=== PATIENT | male | born 1945 | race Caucasian/White ===

== ENCOUNTER 2021-02-16 06:50 | Outpatient (CLI) | payer MEDICARE, OTHER ==
[~2021-02-16] VITALS: Ht 172.7 cm; Wt 71.8 kg
[2021-02-17] MEDS ORDERED: EMPA10TA PO (13:24)
[2021-02-17] MEDS ORDERED: LISI10TA25 PO (13:24)
[2021-02-17] MEDS ORDERED: AMLO-251 PO (13:24)
[2021-02-17] MEDS ORDERED: C,E,1CAP PO (13:24)
[2021-02-17] MEDS ORDERED: UBID100C17 PO (13:24)
[2021-02-17] MEDS ORDERED: CLOP75TA28 PO (13:24)
[2021-02-17] MEDS ORDERED: OMEP20TA33 PO (13:24)
[2021-02-17] MEDS ORDERED: ATOR40TA70 PO (13:24)
[2021-02-17] MEDS ORDERED: LINA5TAB PO (13:24)
[2021-02-17] MEDS ORDERED: ASPI-999 PO (13:24)
== END 2021-02-17 13:27 | disposition home or self-care (01) ==
LOC: PREOP 06:50
PROVIDERS: ATTEND Specialist
DX: Z01.818 Encounter for other preprocedural examination (principal)

== ENCOUNTER 2021-02-20 08:24 | Day surgery (SDC) | payer MEDICARE, OTHER ==
[~2021-02-20] VITALS: Ht 172.7 cm; Wt 71.8 kg
[~2021-02-20 08:24] MED LIST: AMLO-251 PO; ASPI-999 PO; ATOR40TA70 PO; C,E,1CAP PO; CLOP75TA28 PO; EMPA10TA PO; LINA5TAB PO; LISI10TA25 PO; OMEP20TA33 PO; UBID100C17 PO
[2021-02-20] MEDS ORDERED: TIMOLOL MALEATE 0.5% 5 ML (TIMOPTIC) BTL OU PRN (09:00)
[2021-02-20] MEDS ORDERED: MOXIFLOXACIN OPHTH SOLN 5 MG/ML 0.3 ML SYRINGE OP ONE (09:00)
[2021-02-20] MEDS ORDERED: POVIDONE (BETADINE) OPHTH SOLN 5% 30 ML OP ONE (09:00)
[2021-02-20] MEDS ORDERED: LIDOCAINE PF 1% 2 ML VIAL IR PRN (09:00)
[2021-02-20] MEDS: TETRACAINE 0.5% OPHTH SOLN 4 ML BTL (SINGLE DOSE ONLY) OU PRN ×4 (09:16→09:33)
[2021-02-20 09:19] VITALS: BP 145/62
[2021-02-20] MEDS: PHENYLEPHRINE 10% OPHTH (NEO-SYN) 5 ML BTL OU SCH ×3 (09:23→09:33)
[2021-02-20] MEDS: TROPICAMIDE 1% OPH SOLN (MYDRIACYL) 15 ML BTL OP SCH ×3 (09:23→09:33)
[2021-02-20] MEDS ORDERED: MIDAZOLAM 2 MG/2 ML (VERSED) VIAL ONE (09:46)
--- NOTE | 2021-02-20 09:53 | Ophthalmologist Pre-Op Note ---
Pre-Operative Progress Note H&P Reviewed The H&P was reviewed, patient examined and no changes noted. Date H&P Reviewed: Feb 20, 2021 Time H&P Reviewed: 09:53 Pre-Op Dx Cataract, Right Eye BROOKE KUNZ MD Feb 20, 2021 09:53
--- NOTE | 2021-02-20 10:15 | Ophthalmology Operative Report ---
Cataract removal/placement IOL PREOPERATIVE DIAGNOSIS: Cataract Right Eye POSTOPERATIVE DIAGNOSIS: Cataract Right Eye PROCEDURE: Cataract removal and placement of posterior chamber implant, right eye SURGEON: Sean Kunz ANESTHESIA: Topical with sedation COMPLICATIONS: None ESTIMATED BLOOD LOSS: Minimal DESCRIPTION OF PROCEDURE: After proper informed consent was obtained, the patient, a 75 male, was taken to the Operating Room and the right eye was anesthetized with tetracaine. The right eye was then prepped and draped in the usual manner. A wire lid speculum was placed. A paracentesis was made at the left hand position. Preservative free lidocaine was injected into the anterior chamber followed by viscoelastic. A clear corneal incision was made in the temporal position. A capsulorrhexis was preformed and the central nuclear and cortical material were removed. The posterior capsule was polished and Mathew 13.5 AU00T0 IOL was placed into the capsular bag. The residual viscoelastic was aspirated and balanced saline solution was injected into the anterior chamber. Moxifloxacin was injected into the anterior chamber. The wound was checked and found to be water tight. The patient tolerated the procedure well without complications. SEAN KUNZ MD Feb 20, 2021 10:15
[2021-02-20 10:21] VITALS: BP 126/63
[2021-02-20] MEDS ORDERED: acetaZOLAMIDE ER 500 MG CAP (DIAMOX SEQUELS) PO ONE (10:30)
--- NOTE | 2021-02-20 13:17 | Anesthesia-General Post-Op ---
MAC Patient Condition Mental Status/LOC: Same as Preop Cardiovascular: Satisfactory Nausea/Vomiting: Absent Respiratory: Satisfactory Pain: Controlled Complications: Absent Post Op Complications Complications None Follow Up Care/Instructions Patient Instructions None needed. Anesthesiology Discharge Order Discharge Order Patient was doing well after the procedure with no complaints, stable vital signs, no apparent adverse anesthesia problems. ANÍBAL KEARNEY DO Feb 20, 2021 13:17
== END 2021-02-20 10:22 ==
LOC: SDC 08:24
PROVIDERS: ATTEND Specialist
DX: E11.36 Type 2 diabetes mellitus with diabetic cataract (principal); H25.12 Age-related nuclear cataract, left eye; I25.10 Atherosclerotic heart disease of native coronary artery without angina pectoris; I25.2 Old myocardial infarction; E78.00 Pure hypercholesterolemia, unspecified; Z95.1 Presence of aortocoronary bypass graft; Z79.82 Long term (current) use of aspirin; Z79.899 Other long term (current) drug therapy; Z79.02 Long term (current) use of antithrombotics/antiplatelets; Z90.89 Acquired absence of other organs; Z80.3 Family history of malignant neoplasm of breast; Z83.3 Family history of diabetes mellitus
CPT/HCPCS: 66984; 82947; V2632

== ENCOUNTER 2021-03-13 08:30 | Day surgery (SDC) | payer MEDICARE, OTHER ==
[~2021-03-13] VITALS: Ht 172.7 cm; Wt 71.8 kg
[2021-03-13] MEDS ORDERED: MOXIFLOXACIN OPHTH SOLN 5 MG/ML 0.3 ML SYRINGE OP ONE (08:45)
[2021-03-13] MEDS ORDERED: TIMOLOL MALEATE 0.5% 5 ML (TIMOPTIC) BTL OU PRN (08:45)
[2021-03-13] MEDS ORDERED: LIDOCAINE PF 1% 2 ML VIAL IR PRN (08:45)
[2021-03-13] MEDS ORDERED: POVIDONE (BETADINE) OPHTH SOLN 5% 30 ML OP ONE (08:45)
[2021-03-13] MEDS: TETRACAINE 0.5% OPHTH SOLN 4 ML BTL (SINGLE DOSE ONLY) OU PRN ×4 (08:56→09:12)
[2021-03-13] MEDS: TROPICAMIDE 1% OPH SOLN (MYDRIACYL) 15 ML BTL OP SCH ×3 (09:02→09:13)
[2021-03-13] MEDS: PHENYLEPHRINE 10% OPHTH (NEO-SYN) 5 ML BTL OU SCH ×3 (09:02→09:13)
[2021-03-13 09:05] VITALS: BP 148/77
--- NOTE | 2021-03-13 09:29 | Ophthalmologist Pre-Op Note ---
Pre-Operative Progress Note H&P Reviewed The H&P was reviewed, patient examined and no changes noted. Date H&P Reviewed: Mar 13, 2021 Time H&P Reviewed: 09:28 Pre-Op Dx Cataract, Left Eye BROOKE KUNZ MD Mar 13, 2021 09:28
[2021-03-13] MEDS ORDERED: MIDAZOLAM 2 MG/2 ML (VERSED) VIAL ONE (09:31)
--- NOTE | 2021-03-13 09:48 | Ophthalmology Operative Report ---
Cataract removal/placement IOL PREOPERATIVE DIAGNOSIS: Cataract Left Eye POSTOPERATIVE DIAGNOSIS: Cataract Left Eye PROCEDURE: Cataract removal and placement of posterior chamber implant, left eye SURGEON: Sean Kunz ANESTHESIA: Topical with sedation COMPLICATIONS: None ESTIMATED BLOOD LOSS: Minimal DESCRIPTION OF PROCEDURE: After proper informed consent was obtained, the patient, a 75 male, was taken to the Operating Room and the left eye was anesthetized with tetracaine. The left eye was then prepped and draped in the usual manner. A wire lid speculum was placed. A paracentesis was made at the left hand position. Preservative free lidocaine was injected into the anterior chamber followed by viscoelastic. A clear corneal incision was made in the temporal position. A capsulorrhexis was preformed and the central nuclear and cortical material were removed. The posterior capsule was polished and an Mathew 16.0 AU00T0 was placed into the capsular bag. The residual viscoelastic was aspirated and balanced saline solution was injected into the anterior chamber. Moxifloxacin was injected into the anterior chamber. The wound was checked and found to be water tight. The patient tolerated the procedure well without complications. SAEN KUNZ MD Mar 13, 2021 09:48
[2021-03-13] MEDS ORDERED: acetaZOLAMIDE ER 500 MG CAP (DIAMOX SEQUELS) PO ONE (10:00)
[2021-03-13 10:02] VITALS: BP 124/64
--- NOTE | 2021-03-13 12:47 | Anesthesia-General Post-Op ---
MAC Patient Condition Mental Status/LOC: Same as Preop Cardiovascular: Satisfactory Nausea/Vomiting: Absent Respiratory: Satisfactory Pain: Controlled Complications: Absent Post Op Complications Complications None Follow Up Care/Instructions Patient Instructions None needed. Anesthesiology Discharge Order Discharge Order Patient is doing well, no complaints, stable vital signs, no apparent adverse anesthesia problems. No complications reported per nursing. ALFIE TIWARI CRNA Mar 13, 2021 12:47
--- OUTSIDE RECORDS SUMMARY | 2021-03-15 14:57 | XMS REPORT | Encounter Summary ---
Author Author [facility] Organization [facility] Address Unknown Phone Unavailable Care Team Providers Care Rubber Tile Floor Layer Name Role Phone LashawnAnder PCP Encounter Details Care Team Description Date Type Department Karen Gomes, TAISHA [address] [facility] [address] [place] [address] [phone] 03/02/2021 Documentation [facility] [address] [place] [id number] Social History Date Tobacco Use Types Packs/Day Years Used Never Smoker Smokeless Tobacco: Never Used Comments Alcohol Use Standard Drinks/Week No 0 (1 standard drink = 0.6 o z pure alcohol) Sex Assigned at Date Recorded Not on file documented as of this encounter Plan of Treatment Care Team Description Date Type Specialty Karen Gomes APRN [address] [facility] [address] [place] [address] [phone] 04/15/2021 Office Visit Cardiology documented as of this encounter Visit Diagnoses Not on filedocumented in this encounter
--- OUTSIDE RECORDS SUMMARY | 2021-03-15 14:57 | XMS REPORT | Clinical Summary ---
Author Author [facility] Organization [facility] Address Unknown Phone Unavailable Care Team Providers Care Ship Yard Electrical Person Name Role Phone MartyAnder gonsalez PCP Allergies No Known Active Allergies Medications End Date Status Medication Sig Dispensed Refills Start Date Active vit C,E,Zn,Cu one tablet by 30 0 [id number]-rosmery (OCUVITE mouth daily 4 ADULT 50+) 250-5-1 mg cap Active linagliptin (TRADJENTA) 5 take 1 tablet 30 0 mg Tab tablet by oral route 4 every day Active co-enzyme Q10 (COQ-10) take 1 tablet 1 0 0 100 mg capsule by oral route 2 daily Active omeprazole (PRILOSEC) 20 take 1 1 0 0 MG capsule capsule 2 (20MG) by oral route every day before a meal Active aspirin 81 MG EC tablet take 1 tablet 1 0 (81MG) by 2 oral route every day Active L.ACIDOPHILUS/B.BIFIDUM,L Take 1 tablet 0 ONGUM (HEALTHY COLON by mouth ORAL) daily. Active amLODIPine (NORVASC) 10 Take 10 mg by 0 MG tablet mouth daily. Active empagliflozin (JARDIANCE) Take by mouth 0 10 mg tablet daily. Active atorvastatin (LIPITOR) 40 TAKE 1 90 tablet 3 MG tabletIndications: TABLET(40 MG) 0 Dyslipidemia BY MOUTH EVERY NIGHT Active clopidogreL (PLAVIX) 75 TAKE 1 90 tablet 3 mg tablet TABLET(75 MG) 0 BY MOUTH DAILY Active lisinopriL Take 1 tablet 180 tablet 3 (PRINIVIL,ZESTRIL) 20 MG (20 mg total) 0 tablet by mouth 2 (two) times a day. Active nitroglycerin (NITROSTAT) Take one 25 tablet 3 0.4 MG SL tablet under tongue 0 for severe chest pain and may repeat every 5 minutes for a total of 3, if chest pain is not relieved. 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, controlled CKD (chronic kidney disease) stage 3, G FR 30-59 ml/min FPC (current) use of antithrombot ics/antiplatelets Resolved Problems Problem Noted Date Resolved Date Diabetes mellitus, type 2 05/07/2020 S/P coronary artery stent placement 05/07/2020 Encounters Care Team Description Date Type Specialty Karen Gomes APRN 03/02/2021 Documentation Cardiology Karen Gomes APRN 03/02/2021 Documentation Cardiology from Last 3 Months Family History Medical History Relation Name Comments Coronary artery bypass Father CABG x 3 vessel s graft Heart disease Father Parkinson's disease Father Diabetes Maternal Grandfather Diabetes Mother Heart failure Mother Stroke Mother Thyroid disease Mother Thyroid disease Sister Hypertension Sister Relation Name Status Comments Father Cause of was Parkinsons at age 76. (Age 76) Maternal Grandfather Mother Cause of was CHF at age 82. (Age 82) Sister Sister Social History Date Tobacco Use Types Packs/Day Years Used Never Smoker Smokeless Tobacco: Never Used Comments Alcohol Use Standard Drinks/Week No 0 (1 standard drink = 0.6 o z pure alcohol) Sex Assigned at Date Recorded Not on file Last Filed Vital Signs Reading Time Taken Comments Vital Sign 163/74 04/22/2020 4:20 PM CDT repeat left arm Blood Pressure 67 04/22/2020 4:20 PM CDT Pulse - - Temperature - - Respiratory Rate - - Oxygen Saturation - - Inhaled Oxygen Concentration 73 kg (161 lb) 04/22/2020 4:20 PM CDT Weight 172.7 cm (5' 8") 04/22/2020 4:20 PM CDT Height 24.48 04/22/2020 4:20 PM CDT Body Mass Index Plan of Treatment Care Team Description Date Type Specialty Karen Gomes, MONEY POSITION OFFICER [address] [place] [address] [place] [address] [phone] 04/15/2021 Office Visit Cardiology Health Maintenance Due Date Last Done Comments Advance Directive has 1945 been filed Diabetes Mellitus 1945 Ophthalmology Exam Hepatitis C Screen 1945 Medicare Annual Wellness 1945 Td/Tdap# 1945 Diabetes Mellitus Foot 1956 Exam COVID-19 Vaccine (1) 1958 Colorectal Screening via 1996 Colonoscopy Zoster Vaccine# (1 of 2) 1996 Advance Directive 12/07/2011 Conversation Depression Screening 12/07/2011 PHQ-9 # Fall Risk Assessment # 12/07/2011 Patient Needs Advance 12/07/2011 Directive Diabetes Mellitus 08/31/2013 02/28/2013, Hemoglobin A1C 08/24/2012, 04/27/2012, Additional history exists Pneumococcal Vaccine: 65+ 05/08/2014 05/08/2013 Years (2 of 2 - PCV13) Lipid Screening 02/28/2019 02/28/2018, 01/09/2016, 08/18/2015, Additional history exists Influenza Vaccine (#1) 2021 05/15/2018, 06/02/2017, 05/17/2014, Additional history exists Results Not on filefrom Last 3 Months Insurance Type Payer Benefit Subscriber ID Effective Phone Address Plan / Dates Group Medicare MEDICARE MEDICARE [id number] 2011-P [place] PART [place], [place] COMMERCIAL-NONCONTRACTED COLONIAL [id number] [facility] resent MEDICARE SUPPLEMENT ([place]) [place] [address] Advance Directives For more information, please contact: [phone] Patient Industrial Spraypainter Explanation Type Date Recorded Advance Directives and Living Will Power of Cash Posting Clerk Health Care Directive
== END 2021-03-13 10:02 | disposition home or self-care (01) ==
LOC: SDC 08:30
PROVIDERS: ATTEND Specialist
DX: E11.22 Type 2 diabetes mellitus with diabetic chronic kidney disease (principal); H25.12 Age-related nuclear cataract, left eye; I10 Essential (primary) hypertension; I25.10 Atherosclerotic heart disease of native coronary artery without angina pectoris; E78.00 Pure hypercholesterolemia, unspecified; Z79.899 Other long term (current) drug therapy; Z95.5 Presence of coronary angioplasty implant and graft
CPT/HCPCS: 66984; 82947; V2632